=== PATIENT | male | born 1935 | race Caucasian/White ===

== ENCOUNTER 2018-02-22 07:29 | Day surgery (SDC) | payer OTHER ==
[2018-02-22] MEDS ORDERED: LIDOCAINE HCL 2% (20ML MULTI-DOSE VIAL) NR ONE (07:57)
[2018-02-22] MEDS ORDERED: PROPOFOL 20 ML ONE ×3 (07:58)
[2018-02-22 08:18] VITALS: BMI 31.1
[2018-02-22 09:06] VITALS: TEMP 97.7
--- NOTE | 2018-02-22 10:01 | PROC ---
Endoscopy Procedure Endoscopy procedure completed. Please see scanned procedure report.
[2018-02-22 11:42] VITALS: BP 110/65; PULSE 60
--- NOTE | 2018-02-25 14:47 | PATH ---
Surgical Pathology Report Patient Name: LINDA LEONE [facility]. Rec. #: [id number] /Age/Gender: 1935 (Age: 82) / M Account: [id number] Location: [facility]-ENDOSCOPY Taken: 02/22/2018 Received: 02/22/2018 Reported: 02/25/2018 Physicians: Alfredo Brooks M.D. Specimen(s) Received A: BX DUODENUM B: BX ANTRUM AND BODY C: ASCENDING COLON D: BX SIGMOID COLON Clinical History Change in bowel habits, colonic polyp Postoperative diagnosis: Gastritis, history of polyps and diarrhea Final Diagnosis A. THE SECOND PORTION OF DUODENUM, BIOPSY: DUODENAL MUCOSA WITH NO PATHOLOGIC FINDINGS. B. ANTRUM AND BODY, BIOPSY: MILD CHRONIC GASTRITIS. IMMUNOSTAIN IS NEGATIVE FOR H. PYLORI ORGANISMS. C. ASCENDING COLON, BIOPSY: COLONIC MUCOSA SHOWING MILD SURFACE HYPERPLASTIC CHANGE. D. SIGMOID COLON, BIOPSY: COLONIC MUCOSA SHOWING BENIGN/REACTIVE LYMPHOID AGGREGATE. Electronically Signed Alina John M.D. Gross Description A. Received in formalin, labeled "biopsy second portion of duodenum" are 2 hilario, irregular portions of soft tissue measuring 0.2 and 0.3 cm. in greatest dimension. The specimens are submitted in toto in one cassette. B. Received in formalin, labeled "antrum and body" are 2 hilario, irregular portions of soft tissue measuring 0.3 and 0.4 cm. in greatest dimension. The specimens are submitted in toto in one cassette. C. Received in formalin, labeled "biopsy ascending colon" are 2 hilario, irregular portions of soft tissue measuring 0.3 and 0.4 cm. in greatest dimension. The specimens are submitted in toto in one cassette. D. Received in formalin, labeled "biopsy sigmoid colon" are 2 hilario, irregular portions of soft tissue measuring 0.3 and 0.4 cm. in greatest dimension. The specimens are submitted in toto in one cassette. 02/22/201802/22/2018
== END 2018-02-22 10:25 | disposition home or self-care (01) ==
LOC: JASU-ENDO 07:29
PROVIDERS: ATTEND Internal Medicine Gastroenterology
PROC: 0DBN8ZX Excision of Sigmoid Colon, Via Natural or Artificial Opening Endoscopic, Diagnostic (ICD-10-PCS; 2018-02-22)
PROC: 0DB98ZX Excision of Duodenum, Via Natural or Artificial Opening Endoscopic, Diagnostic (ICD-10-PCS; 2018-02-22)
PROC: 0DB68ZX Excision of Stomach, Via Natural or Artificial Opening Endoscopic, Diagnostic (ICD-10-PCS; 2018-02-22)
PROC: 0DBK8ZX Excision of Ascending Colon, Via Natural or Artificial Opening Endoscopic, Diagnostic (ICD-10-PCS; principal; 2018-02-22 08:00)
DX: Z12.11 Encounter for screening for malignant neoplasm of colon (principal); Z86.010 Personal history of colon polyps; K64.8 Other hemorrhoids; K29.70 Gastritis, unspecified, without bleeding
CPT/HCPCS: 88305-TC; 88342-TC